=== PATIENT | female | born 1950 | race Caucasian/White ===

== ENCOUNTER 2019-08-24 13:05 | Emergency (ER) | payer MEDICARE ==
[~2019-08-24] VITALS: Ht 157.5 cm; Wt 100.0 kg
[2019-08-24] MEDS ORDERED: HYDR25TA6 PO (13:23)
[2019-08-24] MEDS ORDERED: ATEN100T PO (13:23)
--- NOTE | 2019-08-24 13:36 | NUR ---
1200 today was sitting and doing a puzzle, felt dizzy, N/V. Now feeling sleepy. 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 18 IV in right AC. Family at bedside. Niall at bedside.
[2019-08-24] MEDS ORDERED: SODIUM CHLORIDE 0.9% 1,000 ML IV ONE (13:49)
[2019-08-24] MEDS ORDERED: SODIUM CHLORIDE FLUSH 10ML SYR IVF ONE (14:00)
[2019-08-24] MEDS ORDERED: MECLIZINE CHEWABLE 25 MG TAB PO ONE (14:00)
[2019-08-24 14:03] LABS: EOSINOPHILS # (AUTO) 0.12 x10^3/uL (0-0.4); MD NO; RED BLOOD COUNT 4.14 x10^6/uL (3.82-5.3)
[2019-08-24 14:16] LABS: ALBUMIN 3.4 g/dL (3.4-5.0); ANION GAP 8 mmol/L (5-15); CALCIUM 9.1 mg/dL (8.5-10.1); CHLORIDE 101 mmol/L (98-107); CREATININE 0.95 mg/dL (0.55-1.02)
[2019-08-24 14:20] LABS: TROPONIN I < 0.015 ng/mL (0.000-0.045)
[2019-08-24 15:39] LABS: BASOPHILS # (AUTO) 0.02 x10^3/uL (0-0.1); BASOPHILS % (AUTO) 0 % (0-1); EOSINOPHILS % (AUTO) 2 % (1-7); LYMPHOCYTES # (AUTO) 1.07 x10^3/uL (1-3.4); LYMPHOCYTES % (AUTO) 14 % (22-44); MEAN CORPUSCULAR HGB CONC 34.1 g/dL (32.4-35.8); MEAN CORPUSCULAR VOLUME 93.7 fL (80-100); MONOCYTES # (AUTO) 0.57 x10^3/uL (0.2-0.8); MONOCYTES % (AUTO) 8 % (2-9); NEUTROPHILS # (AUTO) 5.81 x10^3/uL (1.8-6.8); NEUTROPHILS % (AUTO) 77 % (42-75); PLATELET COUNT 188 x10^3/uL (130-400); RED CELL DISTRIBUTION WIDTH 12.6 % (9.6-15.2)
[2019-08-24] MEDS ORDERED: POTASSIUM CHLORIDE 20 MEQ TAB.ER.PRT PO ONE (16:00)
[2019-08-24] MEDS ORDERED: POTASSIUM CHLORIDE 20 MEQ TAB.ER.PRT ONE (16:03)
[2019-08-24 16:13] VITALS: BP 124/74
== END 2019-08-24 16:15 | disposition home or self-care (01) ==
LOC: ED 16:10
DX: R42 Dizziness and giddiness (principal); R11.2 Nausea with vomiting, unspecified; M54.2 Cervicalgia; R51 Headache; R94.31 Abnormal electrocardiogram [ECG] [EKG]
CPT/HCPCS: 36415; 70450; 80048; 82040; 84484; 85025; 93005; 96360; 96361; 99285; J7030